=== PATIENT | female | born 1990 | race Caucasian/White ===

== ENCOUNTER 2019-06-09 11:34 | Emergency (ER) | payer OTHER ==
[~2019-06-09] VITALS: Ht 152.4 cm; Wt 61.4 kg
[2019-06-09 11:35] VITALS: BP 109/61
[2019-06-09] MEDS ORDERED: ONDANSETRON ODT 4 MG PO ONE (12:00)
[2019-06-09] MEDS ORDERED: ACETAMINOPHEN 500 MG TABLET PO ONE (12:00)
[2019-06-09] MEDS ORDERED: ACETAMINOPHEN 500 MG TABLET ONE (12:28)
[2019-06-09] MEDS ORDERED: ONDANSETRON ODT 4 MG ONE (12:28)
[2019-06-09 13:08] LABS: MICROSCOPIC INDICATED
[2019-06-09 13:17] LABS: CULTURE INDICATED? YES
== END 2019-06-09 14:21 | disposition home or self-care (01) ==
LOC: ED 13:46
DX: O99.512 Diseases of the respiratory system complicating pregnancy, second trimester (principal); O23.42 Unspecified infection of urinary tract in pregnancy, second trimester; J11.1 Influenza due to unidentified influenza virus with other respiratory manifestations; R31.29 Other microscopic hematuria; Z3A.23 23 weeks gestation of pregnancy
CPT/HCPCS: 81001; 87086; 99283; Q0162

== ENCOUNTER 2019-07-05 10:02 | Outpatient (CLI) | payer OTHER ==
[~2019-07-05] VITALS: Ht 152.4 cm; Wt 62.1 kg
[2019-07-05 10:33] LABS: MICROSCOPIC INDICATED
== END 2019-07-05 12:45 | disposition home or self-care (01) ==
LOC: LDOP 10:02
PROVIDERS: ATTEND Student in an Organized Health Care Education/Training Program
DX: O26.892 Other specified pregnancy related conditions, second trimester (principal); R10.9 Unspecified abdominal pain; Z3A.27 27 weeks gestation of pregnancy
CPT/HCPCS: 59025; 76817; 81001; 87086; 99201; G0463

== ENCOUNTER 2019-09-29 05:56 | Inpatient (IN) | payer OTHER ==
[~2019-09-29] VITALS: Ht 152.4 cm; Wt 70.0 kg
[2019-09-29] MEDS ORDERED: OXYTOCIN 30U/ 0.9% NaCL 500ML 500 ML IV ONE (06:01)
[2019-09-29] MEDS ORDERED: D5%-LACTATED RINGERS 1,000 ML IV SCH (06:01)
[2019-09-29] MEDS ORDERED: OXYTOCIN 30U/ 0.9% NaCL 500ML 500 ML ONE ×2 (06:13→15:40)
[2019-09-29] MEDS ORDERED: NEWBORN KIT ONE (06:13)
[2019-09-29 06:19] VITALS: BP 104/66
[2019-09-29] MEDS: LACTATED RINGERS 1,000 ML IV SCH ×3 (06:20→13:23)
[2019-09-29] MEDS ORDERED: OXYTOCIN 30U/ 0.9% NaCL 500ML 500 ML IV PRN (06:22)
[2019-09-29 06:30] LABS: BASOPHILS # (AUTO) 0.03 x10^3/uL (0-0.1); BASOPHILS % (AUTO) 0 % (0-1); EOSINOPHILS # (AUTO) 0.03 x10^3/uL (0-0.4); EOSINOPHILS % (AUTO) 0 % (1-7); LYMPHOCYTES # (AUTO) 2.56 x10^3/uL (1-3.4); LYMPHOCYTES % (AUTO) 31 % (22-44); MD NO; MEAN CORPUSCULAR HEMOGLOBIN 26.5 pg (27.0-34.8); MEAN CORPUSCULAR HGB CONC 33.3 g/dL (32.4-35.8); MEAN CORPUSCULAR VOLUME 79.6 fL (80-100); MEAN PLATELET VOLUME 9.3 fL (7.4-10.4); MONOCYTES # (AUTO) 0.61 x10^3/uL (0.2-0.8); MONOCYTES % (AUTO) 7 % (2-9); NEUTROPHILS # (AUTO) 5.17 x10^3/uL (1.8-6.8); NEUTROPHILS % (AUTO) 62 % (42-75); PLATELET COUNT 224 x10^3/uL (130-400); RED BLOOD COUNT 3.74 x10^6/uL (3.82-5.3); RED CELL DISTRIBUTION WIDTH 13.8 % (9.6-15.2)
[2019-09-29] MEDS ORDERED: ONDANSETRON 2MG/ML, 2ML IVPush PRN ×2 (06:30→13:30)
[2019-09-29] MEDS ORDERED: TERBUTALINE 1 MG/ML, 1ML SQ PRN (06:30)
[2019-09-29] MEDS ORDERED: FENTANYL PF 100 MCG/2ML IVPush PRN (06:30)
[2019-09-29] MEDS ORDERED: CALCIUM CARBONATE 500 MG TAB.CHEW PO PRN (06:30)
[2019-09-29] MEDS ORDERED: TERBUTALINE 1 MG/ML, 1ML IVPush PRN (06:30)
[2019-09-29] MEDS ORDERED: FENTANYL PF 100 MCG/2ML IV PRN (06:30)
[2019-09-29] MEDS ORDERED: FENTANYL PF 100 MCG/2ML ONE (12:39)
[2019-09-29] MEDS ORDERED: FENTANYL/BUPIV./NS/PF 250 ML EPIDCONT ONE (12:47)
[2019-09-29] MEDS ORDERED: BUPIVACAINE 0.25% ONE (13:25)
[2019-09-29] MEDS ORDERED: LACTATED RINGERS 1,000 ML IV SCH (13:28)
[2019-09-29] MEDS ORDERED: FENTANYL/BUPIV./NS/PF 250 ML EPIDCONT SCH (13:28)
[2019-09-29] MEDS ORDERED: LACTATED RINGERS 1,000 ML IVBOLUS PRN (13:30)
[2019-09-29] MEDS ORDERED: EPHEDRINE 50 MG/ML, 1ML IVPush PRN (13:30)
[2019-09-29] MEDS ORDERED: NALOXONE 0.4 MG/ML, 1ML IVPush PRN (13:30)
[2019-09-29] MEDS ORDERED: DIPHENHYDRAMINE 50 MG/ML, 1ML IVPush PRN (13:30)
[2019-09-29] MEDS ORDERED: LIDOCAINE/PF 1.5%-EPI 1:200K, 30ML ONE (13:31)
[2019-09-29] MEDS ORDERED: ACETAMINOPHEN 325 MG TABLET PO PRN (15:30)
[2019-09-29] MEDS ORDERED: SIMETHICONE 80 MG CHEW TAB PO PRN (15:30)
[2019-09-29] MEDS ORDERED: OXYcodone IR 5MG TABLET PO PRN (15:30)
[2019-09-29] MEDS ORDERED: MISOPROSTOL 200 MCG TABLET PR PRN (15:30)
[2019-09-29] MEDS ORDERED: DOCUSATE 100 MG CAPSULE PO PRN (15:30)
[2019-09-29] MEDS ORDERED: IBUPROFEN 600 MG TABLET ONE (15:37)
[2019-09-29] MEDS: OXYTOCIN 30U/ 0.9% NaCL 500ML 500 ML IV SCH (15:43)
[2019-09-29] MEDS: IBUPROFEN 600 MG TABLET PO PRN ×2 (15:44→22:30)
[2019-09-29 18:04] VITALS: BP 106/58
[2019-09-29 19:21] VITALS: BP 100/62
[2019-09-29 23:12] VITALS: BP 98/62
[2019-09-29] MEDS: OXYcodone IR 5MG TABLET PO PRN (23:12)
[2019-09-29 23:19] LABS: BASOPHILS # (AUTO) 0.09 x10^3/uL (0-0.1); BASOPHILS % (AUTO) 1 % (0-1); EOSINOPHILS # (AUTO) 0.04 x10^3/uL (0-0.4); EOSINOPHILS % (AUTO) 0 % (1-7); LYMPHOCYTES # (AUTO) 2.29 x10^3/uL (1-3.4); LYMPHOCYTES % (AUTO) 17 % (22-44); MD NO; MEAN CORPUSCULAR HEMOGLOBIN 26.4 pg (27.0-34.8); MEAN CORPUSCULAR HGB CONC 33.1 g/dL (32.4-35.8); MEAN CORPUSCULAR VOLUME 79.7 fL (80-100); MEAN PLATELET VOLUME 9.8 fL (7.4-10.4); MONOCYTES # (AUTO) 0.82 x10^3/uL (0.2-0.8); MONOCYTES % (AUTO) 6 % (2-9); NEUTROPHILS % (AUTO) 76 % (42-75); PLATELET COUNT 214 x10^3/uL (130-400); RED BLOOD COUNT 3.67 x10^6/uL (3.82-5.3)
[2019-09-30] MEDS: OXYTOCIN 30U/ 0.9% NaCL 500ML 500 ML IV SCH ×2 (01:44→11:26)
[2019-09-30 04:00] VITALS: BP 101/65
[2019-09-30] MEDS: IBUPROFEN 600 MG TABLET PO PRN (06:06)
[2019-09-30] MEDS: OXYcodone IR 5MG TABLET PO PRN ×2 (07:22→11:51)
[2019-09-30 07:30] VITALS: BP 100/62
[2019-09-30] MEDS ORDERED: PRENATAL VIT/IRON/FA 1 EACH TABLET PO SCH (09:00)
[2019-09-30] MEDS ORDERED: RHOGAM FROM BLOOD BANK 1 NOTE EA IM/IV ONE (10:30)
== END 2019-09-30 15:54 | disposition home or self-care (01) | DRG 806 ==
LOC: LDIP 05:56 → 2NW 17:20
PROVIDERS: ADMIT Student in an Organized Health Care Education/Training Program; ATTEND Student in an Organized Health Care Education/Training Program
PROC: 10E0XZZ Delivery of Products of Conception, External Approach (ICD-10-PCS; principal; 2019-09-29)
PROC: 10907ZC Drainage of Amniotic Fluid, Therapeutic from Products of Conception, Via Natural or Artificial Opening (ICD-10-PCS; 2019-09-29)
PROC: 3E033VJ Introduction of Other Hormone into Peripheral Vein, Percutaneous Approach (ICD-10-PCS; 2019-09-29)
DX: O99.02 Anemia complicating childbirth (principal); D62 Acute posthemorrhagic anemia; Z37.0 Single live birth; Z3A.39 39 weeks gestation of pregnancy; Z80.41 Family history of malignant neoplasm of ovary; Z83.3 Family history of diabetes mellitus
CPT/HCPCS: 36415; 85025; 85461; 86592; 86762; 86803; 86850; 86900; 87340; 87806; G0378; J2790; J3010; G0475; J2590; J7120

== ENCOUNTER 2019-12-10 15:14 | Emergency (ER) | payer OTHER ==
[~2019-12-10] VITALS: Ht 152.4 cm; Wt 63.7 kg
[2019-12-10 15:19] VITALS: BP 124/65
== END 2019-12-10 16:45 | disposition home or self-care (01) ==
LOC: ED 16:15
DX: N61.0 Mastitis without abscess (principal)
CPT/HCPCS: 99283